=== PATIENT | female | born 1975 | race Caucasian/White ===

== ENCOUNTER 2017-11-26 17:07 | Observation (INO) | payer OTHER, MEDICAID ==
[~2017-11-26] VITALS: Ht 165.1 cm; Wt 106.1 kg
[2017-11-26 17:13] VITALS: BP 139/77
[2017-11-26 17:37] LABS: ABSOLUTE EOSINOPHILS 0.2 thou/uL (0.0-0.7); ABSOLUTE LYMPHOCYTES 2.8 thou/uL (0.8-5.3); ABSOLUTE MONOCYTES 0.7 thou/uL (0.0-1.2); BASOPHILS 0.4 %; EOSINOPHILS 2.6 %; HEMATOCRIT 40.9 % (37.0-47.0); HEMOGLOBIN 13.7 gm/dL (12.0-15.0); LYMPHOCYTES 36.2 %; MCH 32.4 pg (26.0-34.0); MCHC 33.6 g/dL (28.0-37.0); MCV 96.5 fL (80.0-100.0); MONOCYTES 8.9 %; MPV 7.4 fl. (7.2-11.1); NUCLEATED RBCS 0 /100WBC; PLATELET COUNT* 169 thou/uL (150-400); POLYS 51.9 %; RBC 4.23 mil/uL (4.20-5.00); RDW-CV 14.2 % (10.5-14.5); WBC 7.7 thou/uL (4.0-11.0)
[2017-11-26 17:49] LABS: CALCIUM 8.1 mg/dL (8.5-10.1); CREATININE 0.7 mg/dL (0.6-1.3); POTASSIUM 3.8 mmol/L (3.5-5.1)
[2017-11-26 17:53] LABS: ALBUMIN 2.7 g/dL (3.4-5.0); TOTAL BILIRUBIN 1.1 mg/dL (<0.1-1.0); TOTAL PROTEIN 7.2 g/dL (6.4-8.2)
[2017-11-26 18:21] LABS: URINE BILIRUBIN NEGATIVE (Negative); URINE BLOOD NEGATIVE (Negative); URINE CLARITY CLEAR; URINE COLOR YELLOW; URINE GLUCOSE-RANDOM NEGATIVE (Negative); URINE KETONES NEGATIVE (Negative); URINE LEUKOCYTES-REFLEX NEGATIVE (Negative); URINE NITRITE-REFLEX NEGATIVE (Negative); URINE PROTEIN NEGATIVE (Negative)
[2017-11-26 18:28] VITALS: BP 132/77
[2017-11-26 18:28] LABS: AMP/METHAMP Negative (Negative); BARBITURATES Negative (Negative); BENZODIAZEPINES Negative (Negative); COCAINE Negative (Negative); METHADONE Negative (Negative); OPIATES Negative (Negative); PCP Negative (Negative); THC POSITIVE (Negative)
[2017-11-26 20:00] VITALS: BP 138/76
[2017-11-27] VITALS: BP 146/83
[2017-11-27 04:01] VITALS: BP 135/68
[2017-11-27 04:35] LABS: HEMATOCRIT 38.5 % (37.0-47.0); HEMOGLOBIN 12.8 gm/dL (12.0-15.0); MCH 32.1 pg (26.0-34.0); MCHC 33.1 g/dL (28.0-37.0); MPV 7.7 fl. (7.2-11.1); RBC 3.97 mil/uL (4.20-5.00); RDW-CV 14.2 % (10.5-14.5); WBC 6.8 thou/uL (4.0-11.0)
[2017-11-27 04:39] LABS: CALCIUM 7.9 mg/dL (8.5-10.1); CREATININE 0.7 mg/dL (0.6-1.3); POTASSIUM 3.5 mmol/L (3.5-5.1)
[2017-11-27 08:00] VITALS: BP 106/57
[2017-11-27] MEDS ORDERED: VITAMIN B-1100 M1 PO (09:08)
[2017-11-27 13:41] VITALS: BP 106/57
--- NOTE | 2017-11-28 13:03 | EKG ---
[place] [address] ELECTROCARDIOGRAM REPORT Name: RACHEL BRADFORD Room: [address] M.R.#: [id number] Admission: 11/26/17 Attend Phys: Panfilo Barrios Discharge: 11/27/17 Date of : 79 Report #: [id number] THIS REPORT FOR: //name// [facility] ED Test Date: 2017-11-26 Test Time: 17:51:37 Pat Name: RACHEL BRADFORD Department: Room: [facility] Gender: F Internal Carver: SPRING : 1975 Requested By: Sridhar Goldstein Order Number: [id number] MD: Jamison Colunga Measurements Intervals [place] Rate: 91 P: 24 MD: 147 QRS: -3 QRSD: 109 T: 4 QT: 392 QTc: 483 Interpretive Statements Sinus rhythm Probable left atrial enlargement Low voltage, precordial leads Consider anterior infarct No previous ECG available for comparison Electronically Signed On 11-28-2017 13:03:14 SUPERVISORY HISTORIAN by Jamison Colunga [email or web address] <ELECTRONICALLY SIGNED> By: Jamison Colunga MD, FACC 11/28/17 1303 1751 1751 Jamison Colunga MD, [facility] /EPI
== END 2017-11-27 14:55 | disposition home or self-care (01) ==
LOC: M.ERS 17:07 → M.TBA-ER 17:56 → M.2W 18:36
PROVIDERS: Emergency Medicine Emergency Medical Services; ADMIT Internal Medicine
DX: F10.239 Alcohol dependence with withdrawal, unspecified (principal); T51.0X1A Toxic effect of ethanol, accidental (unintentional), initial encounter; K70.10 Alcoholic hepatitis without ascites; I10 Essential (primary) hypertension; F17.210 Nicotine dependence, cigarettes, uncomplicated; E44.0 Moderate protein-calorie malnutrition